=== PATIENT | male | born 1945 | race Caucasian/White ===

== ENCOUNTER 2022-11-20 11:24 | Inpatient (IN) | payer MEDICARE, OTHER ==
[~2022-11-20] VITALS: Ht 190.5 cm; Wt 84.4 kg
[~2022-11-20 11:24] MED LIST: ASCO-352 PO; ASPI-605 PO; BISA10SU12 RC; DOCU100C36 PO; FURO40SO2 PO; METF-440 PO; METO25TA6 PO; MULT1TAB11 PO; NA P133E RC; PANT40TA49 PO; POTA20TA74 PO; POTA8TAB3 PO; SIMV-49 PO; SPIR50TA PO
--- NOTE | 2022-11-20 11:30 | NUR ---
CLAUDIA NESS FROM SNF C/O VOMITING X3 DAYS, HAVING POOR APPETITE, AND REFUSING MEDS, HERE FOR PSYCH EVALUATION. PLACED IN BED, AWAKE ALERT RESPONDING TO VERBAL STIMULI- COOPERATIVE.
[2022-11-20] MEDS ORDERED: ONDANSETRON HCL/PF 4 MG/2 ML VIAL IVP ONE (12:00)
[2022-11-20] MEDS ORDERED: IV NS 0.9% 1,000 ML BAG IV ONE (12:00)
[2022-11-20] MEDS ORDERED: FAMOTIDINE/PF INJ 20 MG/2 ML VIAL IV ONE ×2 (12:00→12:22)
--- NOTE | 2022-11-20 12:00 | NUR ---
LAW REPORTER AT BEDSIDE
[2022-11-20 12:15] LABS: BASOPHILS # (AUTO) 0.1 K/uL (0.0-0.2); BASOPHILS % (AUTO) 0.4 % (0.0-2.0); EOSINOPHILS % (AUTO) 1.5 % (0.0-6.0); HEMATOCRIT 42 % (39-51); HEMOGLOBIN 14.1 g/dL (13.5-17.5); LYMPHOCYTES # (AUTO) 2.8 K/uL (0.8-4.8); LYMPHOCYTES % (AUTO) 24.1 % (20.0-44.0); MEAN CORPUSCULAR HGB CONC 33 g/dl (31.0-36.0); MEAN CORPUSCULAR VOLUME 90 fL (80-96); MONOCYTES # (AUTO) 0.9 K/uL (0.1-1.30); MONOCYTES % (AUTO) 7.6 % (2.0-12.0); NEUTROPHILS # (AUTO) 7.8 K/uL (1.8-8.9); NEUTROPHILS % (AUTO) 66.4 % (43.0-81.0); PLATELET COUNT (AUTO) 261 K/uL (150-450); WHITE BLOOD COUNT (AUTO) 11.7 K/uL (4.3-11.0)
[2022-11-20] MEDS ORDERED: ONDANSETRON HCL/PF 4 MG/2 ML VIAL ONE (12:21)
[2022-11-20 12:22] LABS: CALCIUM, SERUM 9.4 mg/dL (8.5-10.1); CARBON DIOXIDE 37 mmol/L (21-32); CHLORIDE 97 mmol/L (98-107); CREATININE 1.3 mg/dL (0.6-1.3); GLUCOSE 114 mg/dL (74-106); POTASSIUM 3.6 mmol/L (3.5-5.1); SODIUM SERUM 136 mmol/L (136-145); UREA NITROGEN, BLOOD 21 mg/dL (7-18)
[2022-11-20 12:29] LABS: ALANINE AMINOTRANSFERASE 127 U/L (12-78); ALBUMIN 2.9 g/dL (3.4-5.0); ALKALINE PHOSPHATASE 118 U/L (46-116); ASPARTATE AMINOTRANSFERASE 52 U/L (15-37); BILIRUBIN,DIRECT 0.1 mg/dL (0.0-0.2); BILIRUBIN,TOTAL 0.5 mg/dL (0.2-1.0); LIPASE 87 U/L (73-393)
[2022-11-20] MEDS ORDERED: TRAZ-182 PO (12:44)
[2022-11-20] MEDS ORDERED: SENN-261 PO (12:44)
[2022-11-20] MEDS ORDERED: ACET-868 PO (12:44)
[2022-11-20] MEDS ORDERED: ATOR10TA PO (12:44)
[2022-11-20] MEDS ORDERED: ALPR0.5T8 PO (12:44)
[2022-11-20] MEDS ORDERED: POTA40LI17 PO (12:44)
[2022-11-20] MEDS ORDERED: MAGN400O6 PO (12:44)
[2022-11-20] MEDS ORDERED: ARIP20TA20 PO (12:44)
[2022-11-20] MEDS ORDERED: BISA10SU11 RC (12:44)
[2022-11-20] MEDS ORDERED: FURO20TA4 PO (12:44)
--- NOTE | 2022-11-20 13:15 | NUR ---
PATIENT ON HOLD 5150 FORMS FILLED AND SIGNED BY MANOLO SELBY
--- NOTE | 2022-11-20 14:22 | NUR ---
bed assigned= 213-B
[2022-11-20] MEDS ORDERED: ACETAMINOPHEN 325 MG TABLET PO PRN ×2 (14:30→15:00)
[2022-11-20] MEDS ORDERED: NA PHOS,M-B/NA PHOS,DI-BA 1 EA ENEMA RC PRN (14:30)
[2022-11-20] MEDS ORDERED: BISACODYL SUPP (10 MG) 10 MG/SUPP.RECT SUPP.RECT RC PRN (14:30)
[2022-11-20] MEDS ORDERED: LORAZEPAM 0.5 MG TABLET PO PRN (15:00)
[2022-11-20] MEDS ORDERED: MAG HYDROX/AL HYDROX/SIMETH 30 ML UDC PO PRN (15:00)
[2022-11-20] MEDS ORDERED: ZOLPIDEM TARTRATE 5 MG TABLET PO PRN (15:00)
[2022-11-20] MEDS ORDERED: MAGNESIUM HYDROXIDE 30 ML UDC PO PRN (15:00)
--- NOTE | 2022-11-20 15:32 | NUR ---
REPORT GIVEN TO BÁRBARA RN ROOM 213-B FOR DICK
--- NOTE | 2022-11-20 16:07 | NUR ---
RECEIVED PT FROM ER, SAFE TRANSFER, SKIN ASSESSMENT PERFORMED SKIN IS INTACT NO BED SORES NO OPEN WOUNDS, ABRASION NOTED ON RIGHT EYEBROW AREA OF FACE A BO AND A SCAB, BI-LATERAL ARMS HAVE DISCOLORATION FROM IV SITES AND OTHER NOTED, BUTTOCKS AND SIVAKUMAR AREA CLEAN CLEAR, HEIGHT IS 6'3" WEIGHT IS 186 LBS, VS = B/P 120/69, TEMP 98.7, RR 18, PULSE 68, OXYGEN 95%, PT MADE COMFORTABLE AND ORIENTED TO STAFF , ROOM , AND EDUCATED TO ASK FOR HELP IF NEEDING TO USE BATH ROOM OR NEEDS ANY OTHER HELP. EXPRESSED UNDERSTANDING AND IS GOING TO REST AND NAP FOR RIGHT NOW
[2022-11-20] MEDS: METFORMIN 500 MG TABLET PO SCH (16:25)
--- NOTE | 2022-11-20 16:27 | NUR ---
RN-CO: DR MAX GAVE ADMITTING ORDERS AND DR HOFFMANN RECONCILED HOME MEDICATIONS, NOTED AND CARRIED OUT.
[2022-11-20 20:00] VITALS: BP 98/53
[2022-11-20] MEDS: ATORVASTATIN 10 MG TABLET PO SCH (21:32)
[2022-11-20] MEDS: DOCUSATE SODIUM 100 MG CAPSULE PO SCH (21:32)
[2022-11-20] MEDS: SENNOSIDES 8.6 MG TABLET PO SCH (21:32)
[2022-11-21 07:25] LABS: ALBUMIN 2.4 g/dL (3.4-5.0); BILIRUBIN,TOTAL 0.5 mg/dL (0.2-1.0); CALCIUM, SERUM 9.2 mg/dL (8.5-10.1); CREATININE 1.1 mg/dL (0.6-1.3); POTASSIUM 3.7 mmol/L (3.5-5.1); TOTAL PROTEIN, SERUM 5.9 g/dL (6.4-8.2)
[2022-11-21 08:00] VITALS: BP 119/60
[2022-11-21] MEDS: PANTOPRAZOLE 40 MG TABLET.DR PO SCH (08:26)
[2022-11-21] MEDS: METFORMIN 500 MG TABLET PO SCH ×2 (08:26→17:16)
[2022-11-21] MEDS ORDERED: FUROSEMIDE 20 MG TABLET PO SCH (09:00)
[2022-11-21] MEDS ORDERED: SPIRONOLACTONE 25 MG TABLET PO SCH (09:00)
--- NOTE | 2022-11-21 09:16 | NUR ---
WAYNE Clinical Note: Pt placed on a 5150 hold for GD. Pt was aggressive at his facility. Patient will return back to [facility] located at [address] [place] [address]; ([phone]). WAYNE spoke with Екатерина from admissions who stated that pt is welcomed back.
--- NOTE | 2022-11-21 09:16 | NUR ---
Treatment Plan: Pt refused to sign treatment plan and was very confused.
--- NOTE | 2022-11-21 09:16 | NUR ---
WAYNE Initial Discharge Note: Patient will return back to [facility] located at [address] [place] [address]; ([phone]). WAYNE spoke with Екатерина from admissions who stated that pt is welcomed back. WAYNE will work with the MD and pt to help coordinate appropriate discharge.
[2022-11-21 16:00] VITALS: BP 121/65
[2022-11-21] MEDS: OLANZAPINE ZYDIS 5 MG TAB.RAPDIS PO SCH (17:16)
[2022-11-21 20:00] VITALS: BP 117/63
[2022-11-21 20:46] VITALS: BP 117/63
[2022-11-21] MEDS: DIVALPROEX SODIUM 250 MG TABLET.DR PO SCH (21:05)
[2022-11-21] MEDS: ATORVASTATIN 10 MG TABLET PO SCH (21:05)
[2022-11-21] MEDS: SENNOSIDES 8.6 MG TABLET PO SCH (21:05)
[2022-11-21] MEDS: DOCUSATE SODIUM 100 MG CAPSULE PO SCH (21:12)
[2022-11-21] MEDS: TRAZODONE 50 MG TABLET PO SCH (21:12)
--- NOTE | 2022-11-21 22:06 | NUR ---
FOLLOWED PATIENT'S DIET FROM THE FACILITY.
--- NOTE | 2022-11-22 01:51 | NUR ---
GOT AN ORDER FROM MD TO USE STRAIGHT CATH TO OBTAIN URINE SAMPLE SINCE PATIENT IS INCONTINENT AND USING A DIAPER.
[2022-11-22 06:32] LABS: BASOPHILS % (AUTO) 0.4 % (0.0-2.0); EOSINOPHILS % (AUTO) 3.5 % (0.0-6.0); HEMATOCRIT 38 % (39-51); HEMOGLOBIN 12.5 g/dL (13.5-17.5); LYMPHOCYTES # (AUTO) 3.4 K/uL (0.8-4.8); LYMPHOCYTES % (AUTO) 29.2 % (20.0-44.0); MEAN CORPUSCULAR HGB CONC 33 g/dl (31.0-36.0); MEAN CORPUSCULAR VOLUME 91 fL (80-96); MONOCYTES # (AUTO) 0.8 K/uL (0.1-1.30); NEUTROPHILS % (AUTO) 59.9 % (43.0-81.0); PLATELET COUNT (AUTO) 232 K/uL (150-450); RED BLOOD CELL COUNT(AUTO) 4.18 MIL/uL (4.5-6.0); WHITE BLOOD COUNT (AUTO) 11.7 K/uL (4.3-11.0)
--- NOTE | 2022-11-22 06:44 | NUR ---
PATIENT RESTING IN BED. A/O X1. UNKEMPT, DISHEVELED, CONFUSED, SUSPICIOUS, GUARDED, LABILE AND EASILY AGITATED. NO SOB OR NOTED. NO C/O PAIN. NO SI/HI AT THIS TIME. ON BED REST, NEEDS MAXIMUM ASSISTANCE WITH ADLS. FOR PT EVALUATION. BILATERAL FOREARMS SKIN DISCOLORATION, RIGHT ARM SKIN TEAR, LEFT KNEE AND FOREHEAD (RIGHT) SCAB SAFETY PRECAUTIONS IN PLACE. WILL ENDORSE TO NEXT SHIFT FOR CONTINUITY OF CARE.
[2022-11-22 06:48] LABS: BILIRUBIN,URINE NEGATIVE (NEGATIVE); COLOR,URINE DARK YELLOW (YELLOW); LEUKOCYTE ESTERASE ,URINE TRACE (NEGATIVE); NITRITE, URINE NEGATIVE (NEGATIVE); PH,URINE 6.5 (5.0-8.0); PROTEIN,URINE 1+ mg/dl (NEGATIVE); UGLUCOSE NEGATIVE (NEGATIVE)
[2022-11-22 06:58] LABS: CALCIUM, SERUM 9.4 mg/dL (8.5-10.1); CARBON DIOXIDE 30 mmol/L (21-32); CHLORIDE 102 mmol/L (98-107); GLUCOSE 121 mg/dL (74-106); MAGNESIUM 1.8 mg/dL (1.8-2.4); PHOSPHORUS 2.5 mg/dL (2.5-4.9); POTASSIUM 3.5 mmol/L (3.5-5.1); SODIUM SERUM 140 mmol/L (136-145); UREA NITROGEN, BLOOD 21 mg/dL (7-18)
[2022-11-22 07:04] LABS: BACTERIA,URINE Few /HPF (None Seen); RBC,URINE 0-2 /HPF (0-2); SQUAMOUS EPITHELIAL CELL,UR Few /HPF (None Seen)
[2022-11-22 08:00] VITALS: BP 129/74
[2022-11-22] MEDS: PANTOPRAZOLE 40 MG TABLET.DR PO SCH (08:30)
[2022-11-22] MEDS: DIVALPROEX SODIUM 250 MG TABLET.DR PO SCH ×2 (09:00→21:52)
[2022-11-22] MEDS: OLANZAPINE ZYDIS 5 MG TAB.RAPDIS PO SCH ×2 (09:00→17:20)
[2022-11-22] MEDS: METFORMIN 500 MG TABLET PO SCH ×2 (09:00→17:20)
[2022-11-22] MEDS: CEPHALEXIN MONOHYDRATE 250 MG CAPSULE PO SCH ×3 (12:37→23:09)
[2022-11-22 16:00] VITALS: BP 127/70
[2022-11-22 20:00] VITALS: BP 126/68
[2022-11-22] MEDS: DOCUSATE SODIUM 100 MG CAPSULE PO SCH (21:52)
[2022-11-22] MEDS: SENNOSIDES 8.6 MG TABLET PO SCH (21:53)
[2022-11-22] MEDS: ATORVASTATIN 10 MG TABLET PO SCH (21:54)
[2022-11-22] MEDS: TRAZODONE 50 MG TABLET PO SCH (21:54)
--- NOTE | 2022-11-23 03:44 | NUR ---
Alert,verbal and confused incontinent care done kept clean. ABT in progress no adverse reaction. Temp 98.4.
[2022-11-23] MEDS: CEPHALEXIN MONOHYDRATE 250 MG CAPSULE PO SCH ×4 (05:40→23:52)
[2022-11-23 06:22] LABS: BASOPHILS % (AUTO) 0.2 % (0.0-2.0); EOSINOPHILS % (AUTO) 6.2 % (0.0-6.0); HEMATOCRIT 38 % (39-51); HEMOGLOBIN 12.6 g/dL (13.5-17.5); LYMPHOCYTES # (AUTO) 2.7 K/uL (0.8-4.8); LYMPHOCYTES % (AUTO) 30.3 % (20.0-44.0); MEAN CORPUSCULAR HGB CONC 33 g/dl (31.0-36.0); MEAN CORPUSCULAR VOLUME 91 fL (80-96); MONOCYTES # (AUTO) 0.5 K/uL (0.1-1.30); MONOCYTES % (AUTO) 6.1 % (2.0-12.0); NEUTROPHILS # (AUTO) 5.1 K/uL (1.8-8.9); NEUTROPHILS % (AUTO) 57.2 % (43.0-81.0); PLATELET COUNT (AUTO) 217 K/uL (150-450); RED BLOOD CELL COUNT(AUTO) 4.17 MIL/uL (4.5-6.0)
[2022-11-23 06:38] LABS: CALCIUM, SERUM 9.4 mg/dL (8.5-10.1); CARBON DIOXIDE 31 mmol/L (21-32); CHLORIDE 102 mmol/L (98-107); CREATININE 0.9 mg/dL (0.6-1.3); GLUCOSE 101 mg/dL (74-106); MAGNESIUM 1.7 mg/dL (1.8-2.4); PHOSPHORUS 3.2 mg/dL (2.5-4.9); POTASSIUM 3.5 mmol/L (3.5-5.1); SODIUM SERUM 139 mmol/L (136-145); UREA NITROGEN, BLOOD 20 mg/dL (7-18)
[2022-11-23] MEDS ORDERED: MAGNESIUM OXIDE 400 MG TABLET PO ONE ×2 (07:30→11:00)
--- NOTE | 2022-11-23 07:40 | NUR ---
WOUND CARE CONSULT: PT REFUSED SKIN ASSESSMENT. SKIN DISCOLORATION TO ARMS NOTED TO ADMISSION PHOTO. WILL SEE PRN.
[2022-11-23 08:00] VITALS: BP 127/71
[2022-11-23] MEDS: DIVALPROEX SODIUM 250 MG TABLET.DR PO SCH ×2 (08:46→21:43)
[2022-11-23] MEDS: OLANZAPINE ZYDIS 5 MG TAB.RAPDIS PO SCH ×2 (08:46→17:53)
[2022-11-23] MEDS: PANTOPRAZOLE 40 MG TABLET.DR PO SCH (08:46)
[2022-11-23] MEDS: METFORMIN 500 MG TABLET PO SCH ×2 (08:46→17:53)
[2022-11-23 16:00] VITALS: BP 120/66
[2022-11-23 20:00] VITALS: BP 135/76
--- NOTE | 2022-11-23 20:16 | NUR ---
GPS RN OPENING NOTES RECEIVED PATIENT IN BED, ON SUPINE POSITION. NO S/S OF PAIN OR ANY DISTRESS AT THIS TIME. ON ROOM AIR BREATHING EVENLY AND UNLABORED. NO S/S OF SOB OR DISTRESS AT THIS TIME. A/O X 2 NOTED PATIENT TO BE CONFUSED, AGITATED BUT ABLE TO FOLLOW COMMANDS. TRYING TO GET OUT OF BED. NOTED PATIENT TALKING TO SELF MOST OF THE TIME. NOTED BILATERAL ARM WITH DRESSING CLEAN AND DRY. KEPT BED ON LOWER LOCKED POSITION, KEPT SIDE RAILS UP ALL THE TIME. KEPT CALL LIGHT WITHIN AT REACH. WILL CONTINUE TO MONITOR EVERY 15 MONS FOR BEHAVIORAL CHANGES.
[2022-11-23] MEDS: DOCUSATE SODIUM 100 MG CAPSULE PO SCH (21:43)
[2022-11-23] MEDS: TRAZODONE 50 MG TABLET PO SCH (21:43)
[2022-11-23] MEDS: ATORVASTATIN 10 MG TABLET PO SCH (21:43)
[2022-11-23] MEDS: SENNOSIDES 8.6 MG TABLET PO SCH (21:43)
[2022-11-24] MEDS: CEPHALEXIN MONOHYDRATE 250 MG CAPSULE PO SCH ×3 (05:42→17:05)
[2022-11-24 08:00] VITALS: BP 118/57
[2022-11-24] MEDS: DIVALPROEX SODIUM 250 MG TABLET.DR PO SCH ×3 (08:19→22:07)
[2022-11-24] MEDS: OLANZAPINE ZYDIS 5 MG TAB.RAPDIS PO SCH ×2 (08:19→17:05)
[2022-11-24] MEDS: METFORMIN 500 MG TABLET PO SCH ×2 (08:19→17:04)
[2022-11-24] MEDS: PANTOPRAZOLE 40 MG TABLET.DR PO SCH (08:19)
[2022-11-24 16:00] VITALS: BP 109/60
--- NOTE | 2022-11-24 19:00 | NUR ---
GPS RN OPENING NOTE RECEIVED PATIENT ASLEEP AND IN THE BED. PT IS A/OX1, ABLE TO WALK W/ A WALKER. PATIENT IS SHOWING NO S/S OF DISTRESS AT THIS TIME. PT HAS NO S/S OR COMPLAINTS OF PAIN @ THIS TIME. PT IS IN RA TOLERATING WELL, BREATHING EVEN AND UNLABORED @ THIS TIME. PATIENT HAS NO NEED @ THIS TIME. PATIENT BED SIDE RAILS UP X 2 FOR SAFETY. BED LOCKED AND LOW. WILL CONTINUE TO MONITOR Q15 WITH THE HELP OF STAFF TO MAINTAIN SAFETY.
[2022-11-24 20:00] VITALS: BP 116/65
[2022-11-24] MEDS: SENNOSIDES 8.6 MG TABLET PO SCH ×2 (21:36→22:00)
[2022-11-24] MEDS: DOCUSATE SODIUM 100 MG CAPSULE PO SCH ×2 (21:36→22:00)
[2022-11-24] MEDS: ATORVASTATIN 10 MG TABLET PO SCH ×2 (21:36→22:00)
[2022-11-24] MEDS: TRAZODONE 50 MG TABLET PO SCH ×2 (21:36→22:00)
--- NOTE | 2022-11-24 22:11 | NUR ---
PM MEDS HELD. PT REFUSED MEDICATION. CHARGE NURSE INFORMED AND AWARE. MEDICATION RETURNED TO [facility].
--- NOTE | 2022-11-25 00:03 | NUR ---
HELD ARLETH D/T PT REFUSED. CHARGE NURSE AWARE AND INFORMED.
[2022-11-25] MEDS: CEPHALEXIN MONOHYDRATE 250 MG CAPSULE PO SCH ×5 (06:00→23:51)
--- NOTE | 2022-11-25 06:17 | NUR ---
HELD KEPLEX D/T PT REFUSED. PT IS VOMITING. CHARGE NURSE AWARE AND INFORMED.
[2022-11-25 08:00] VITALS: BP 136/63
[2022-11-25] MEDS: METFORMIN 500 MG TABLET PO SCH ×2 (08:10→16:20)
[2022-11-25] MEDS: PANTOPRAZOLE 40 MG TABLET.DR PO SCH (08:11)
[2022-11-25] MEDS: OLANZAPINE ZYDIS 5 MG TAB.RAPDIS PO SCH ×2 (08:11→16:21)
[2022-11-25] MEDS ORDERED: hydrOXYzine PAMOATE 25 MG CAPSULE PO PRN (12:00)
[2022-11-25 16:00] VITALS: BP 116/61
[2022-11-25 20:20] VITALS: BP 98/62
[2022-11-25 21:00] VITALS: BP 106/67
[2022-11-25] MEDS: SENNOSIDES 8.6 MG TABLET PO SCH (21:50)
[2022-11-25] MEDS: DOCUSATE SODIUM 100 MG CAPSULE PO SCH (21:50)
[2022-11-25] MEDS: ATORVASTATIN 10 MG TABLET PO SCH (21:51)
[2022-11-25] MEDS: DIVALPROEX SODIUM 250 MG TABLET.DR PO SCH (21:51)
[2022-11-25] MEDS: TRAZODONE 50 MG TABLET PO SCH (21:51)
--- NOTE | 2022-11-25 22:02 | NUR ---
RN NOTE: RONNELL DIAMOND NOTIFIED THAT PATIENT O2 SATURATION LEVEL IS LOW 90-91% ON ROOM AIR. RONNELL DIAMOND ORDERED ALBUTEROL AND ATROVENT BREATHING TREATMENT Q6HRS ROUTINE, KEEP O2 AT 2LPM UNTIL O2 SAT LEVEL STABLE, CHEST X-RAY IN AM. ALL ORDERS NOTED AND CARRIED OUT.
[2022-11-25] MEDS: ALBUTEROL FS 2.5 MG/3 ML VIAL.NEB NEB SCH (22:58)
[2022-11-25] MEDS: IPRATROPIUM NEB FS 0.5 MG/2.5 ML AMPUL.NEB NEB SCH (22:58)
[2022-11-26] MEDS: IPRATROPIUM NEB FS 0.5 MG/2.5 ML AMPUL.NEB NEB SCH ×4 (01:30→21:13)
[2022-11-26] MEDS: ALBUTEROL FS 2.5 MG/3 ML VIAL.NEB NEB SCH ×4 (01:30→21:13)
[2022-11-26] MEDS: CEPHALEXIN MONOHYDRATE 250 MG CAPSULE PO SCH ×3 (06:10→17:04)
[2022-11-26 08:00] VITALS: BP 108/57
[2022-11-26] MEDS: PANTOPRAZOLE 40 MG TABLET.DR PO SCH (08:09)
[2022-11-26] MEDS: METFORMIN 500 MG TABLET PO SCH ×2 (09:10→17:04)
[2022-11-26] MEDS: OLANZAPINE ZYDIS 5 MG TAB.RAPDIS PO SCH ×2 (09:10→17:04)
[2022-11-26] MEDS: DIVALPROEX SODIUM 250 MG TABLET.DR PO SCH ×2 (09:10→21:36)
--- NOTE | 2022-11-26 12:02 | NUR ---
Court Notification: Pt does not have any supportive contact at this time.
--- NOTE | 2022-11-26 12:03 | NUR ---
Court Hearing: Patient's court hearing for [id number] was today and it was upheld for GD.
[2022-11-26 16:00] VITALS: BP 101/65
--- NOTE | 2022-11-26 19:47 | NUR ---
RN NOTE RELAYED TO HEALTH CARE / MEDICAL JOB TITLES LOBO REGARDING THE CHEST X-RAY RESULT WITH NO NEW ORDERS AT THIS TIME.
[2022-11-26 19:52] VITALS: BP 108/76
[2022-11-26] MEDS: ATORVASTATIN 10 MG TABLET PO SCH (21:28)
[2022-11-26] MEDS: DOCUSATE SODIUM 100 MG CAPSULE PO SCH (21:28)
[2022-11-26] MEDS: SENNOSIDES 8.6 MG TABLET PO SCH (21:28)
[2022-11-26] MEDS: TRAZODONE 50 MG TABLET PO SCH (21:28)
[2022-11-27] MEDS: CEPHALEXIN MONOHYDRATE 250 MG CAPSULE PO SCH ×4 (00:05→17:14)
[2022-11-27] MEDS: ALBUTEROL FS 2.5 MG/3 ML VIAL.NEB NEB SCH ×4 (01:30→19:30)
[2022-11-27] MEDS: IPRATROPIUM NEB FS 0.5 MG/2.5 ML AMPUL.NEB NEB SCH ×4 (01:30→19:30)
[2022-11-27 08:00] VITALS: BP 120/75
[2022-11-27] MEDS: METFORMIN 500 MG TABLET PO SCH ×2 (08:19→16:42)
[2022-11-27] MEDS: OLANZAPINE ZYDIS 5 MG TAB.RAPDIS PO SCH ×2 (08:19→16:42)
[2022-11-27] MEDS: PANTOPRAZOLE 40 MG TABLET.DR PO SCH (08:19)
[2022-11-27] MEDS: DIVALPROEX SODIUM 250 MG TABLET.DR PO SCH ×2 (08:19→21:52)
[2022-11-27 16:00] VITALS: BP 103/65
[2022-11-27] MEDS: GLUCERNA SHAKE 237 ML CAN PO SCH (17:15)
[2022-11-27 20:12] VITALS: BP 116/68
[2022-11-27] MEDS: TRAZODONE 50 MG TABLET PO SCH (21:52)
[2022-11-27] MEDS: SENNOSIDES 8.6 MG TABLET PO SCH (21:52)
[2022-11-27] MEDS: DOCUSATE SODIUM 100 MG CAPSULE PO SCH (21:52)
[2022-11-27] MEDS: ATORVASTATIN 10 MG TABLET PO SCH (22:01)
[2022-11-28] MEDS: CEPHALEXIN MONOHYDRATE 250 MG CAPSULE PO SCH ×5 (00:20→18:23)
--- NOTE | 2022-11-28 00:38 | NUR ---
RN NOTE PT REFUSED TAKING ANTIBIOTIC MEDICATION KEFLEX DUE AT 0000. PT STATED "NO" . EDUCATED PT ABNOUT THE IMPORTANCE OF TAKING ANTIBIOTIC MEDICATIONS FOLLOWING THE SCHEDULE; PT STILL REFUSED.
[2022-11-28] MEDS: ALBUTEROL FS 2.5 MG/3 ML VIAL.NEB NEB SCH ×4 (01:30→20:27)
[2022-11-28] MEDS: IPRATROPIUM NEB FS 0.5 MG/2.5 ML AMPUL.NEB NEB SCH ×4 (01:30→20:27)
[2022-11-28 08:00] VITALS: BP 107/70
[2022-11-28] MEDS: PANTOPRAZOLE 40 MG TABLET.DR PO SCH (08:28)
[2022-11-28] MEDS: DIVALPROEX SODIUM 250 MG TABLET.DR PO SCH ×2 (08:55→21:18)
[2022-11-28] MEDS: METFORMIN 500 MG TABLET PO SCH ×2 (08:55→17:19)
[2022-11-28] MEDS: GLUCERNA SHAKE 237 ML CAN PO SCH ×2 (08:56→17:19)
[2022-11-28] MEDS: OLANZAPINE ZYDIS 5 MG TAB.RAPDIS PO SCH ×2 (09:50→21:20)
[2022-11-28 16:00] VITALS: BP 126/75
[2022-11-28 20:00] VITALS: BP 101/62
[2022-11-28 20:12] VITALS: BP 101/62
--- NOTE | 2022-11-28 20:31 | NUR ---
RN OPENING NOTES: RECEIVED PATIENT AWAKE, ON ADILIA CHAIR, NO COMPLAIN OF PAIN AND DISCOMFORT WAS OBSERVED, ON ROOM AIR SATURATING WELL, PATIENT ON CRUSH MEDICATION AND ROUTINE BREATHING TREATMENT , NO COMBATIVE BEHAVIOR WAS OBSERVED WILL CONTINUE TO MONITOR.
[2022-11-28] MEDS: DOCUSATE SODIUM 100 MG CAPSULE PO SCH (21:18)
[2022-11-28] MEDS: SENNOSIDES 8.6 MG TABLET PO SCH (21:18)
[2022-11-28] MEDS: TRAZODONE 50 MG TABLET PO SCH (21:19)
[2022-11-28] MEDS: ATORVASTATIN 10 MG TABLET PO SCH (21:22)
[2022-11-29] MEDS: CEPHALEXIN MONOHYDRATE 250 MG CAPSULE PO SCH ×3 (00:08→11:27)
[2022-11-29] MEDS: IPRATROPIUM NEB FS 0.5 MG/2.5 ML AMPUL.NEB NEB SCH ×4 (01:42→20:43)
[2022-11-29] MEDS: ALBUTEROL FS 2.5 MG/3 ML VIAL.NEB NEB SCH ×4 (01:42→20:43)
[2022-11-29 08:00] VITALS: BP 103/65
[2022-11-29] MEDS: OLANZAPINE ZYDIS 5 MG TAB.RAPDIS PO SCH ×2 (08:25→21:13)
[2022-11-29] MEDS: DIVALPROEX SODIUM 250 MG TABLET.DR PO SCH ×3 (08:25→16:28)
[2022-11-29] MEDS: GLUCERNA SHAKE 237 ML CAN PO SCH ×2 (08:25→16:28)
[2022-11-29] MEDS: PANTOPRAZOLE 40 MG TABLET.DR PO SCH (08:26)
[2022-11-29] MEDS: METFORMIN 500 MG TABLET PO SCH ×2 (08:26→16:28)
--- NOTE | 2022-11-29 11:54 | NUR ---
Facility Contact: WAYNE spoke with Екатерина/Marisel from admissions ([phone]) and notified of pt's dc day 12/01 and stated pt is welcomed back on that day. WAYNE faxed ([phone]) of pt's progress notes.
[2022-11-29 16:00] VITALS: BP 95/64
--- NOTE | 2022-11-29 18:39 | NUR ---
RN- CLOSING NOTES PATIENT IS RESTING IN BED, BREATHING EVEN AND NON LABORED WITH NO S/S OF DISTRESS. PATIENT IS QUIET, ISOLATIVE, CONFUSED, AND DISORIENTED. OXYGEN SATURATION AT 94% AND 95% THROUGHOUT THE DAY ON ROOM AIR. PATIENT IS MEDICATION COMPLIANT. DENIES SI/HI AT THIS TIME. WILL CONTINUE TO MONITOR Q 15 MINUTES FOR SAFETY AND BEHAVIOR.
[2022-11-29 20:23] VITALS: BP 103/64
[2022-11-29] MEDS: DOCUSATE SODIUM 100 MG CAPSULE PO SCH (21:13)
[2022-11-29] MEDS: ATORVASTATIN 10 MG TABLET PO SCH (21:14)
[2022-11-29] MEDS: SENNOSIDES 8.6 MG TABLET PO SCH (21:14)
[2022-11-29] MEDS: TRAZODONE 50 MG TABLET PO SCH (21:18)
[2022-11-30] MEDS: IPRATROPIUM NEB FS 0.5 MG/2.5 ML AMPUL.NEB NEB SCH ×4 (01:45→20:53)
[2022-11-30] MEDS: ALBUTEROL FS 2.5 MG/3 ML VIAL.NEB NEB SCH ×4 (01:45→20:53)
[2022-11-30] MEDS ORDERED: Z GUARD REMEDY 4 OZ OINT TP PRN (06:00)
[2022-11-30 08:00] VITALS: BP 111/63
--- NOTE | 2022-11-30 08:14 | NUR ---
EARLY DISCHARGE ENTRY 12/01/2022: Patient will return back to [facility] located at [address] [place] [address]; ([phone]). Please arrange transportation at 1PM. SW contacted [facility] and spoke with Екатерина/Marisel cifuentes who stated pt is welcomed back. Pt has no support contact at this time. Pt has no other supportive contact. Pt is alert and oriented x2. Pt denies suicidal or homicidal ideation. Pt denies visual/auditory hallucinations. Patient will follow-up at the facility with Dr. Looney (psychiatrist) [id number] [address]; ([phone]). Patient will follow up with (Psychiatrist) Dr. Salter at [address] [place] [address] ([phone]). Patient presents with euthymic mood and congruent affect.
[2022-11-30] MEDS: DIVALPROEX SODIUM 250 MG TABLET.DR PO SCH ×3 (08:23→16:48)
[2022-11-30] MEDS: OLANZAPINE ZYDIS 5 MG TAB.RAPDIS PO SCH ×2 (08:23→21:48)
[2022-11-30] MEDS: PANTOPRAZOLE 40 MG TABLET.DR PO SCH (08:24)
[2022-11-30] MEDS: GLUCERNA SHAKE 237 ML CAN PO SCH ×2 (08:24→16:48)
[2022-11-30] MEDS: METFORMIN 500 MG TABLET PO SCH ×2 (08:24→16:48)
[2022-11-30] MEDS: Z GUARD REMEDY 4 OZ OINT TP SCH (08:31)
[2022-11-30 16:00] VITALS: BP 100/60
--- NOTE | 2022-11-30 17:46 | NUR ---
NURSE NOTES: PT ANXIOUS AT THIS TIME, HAVING YELLING OUTBURST. VISTARIL PO ADMIN ORDERED. PT STACY WELL. WILL CONT TO MONITOR.
--- NOTE | 2022-11-30 19:58 | NUR ---
HEADMASTER/MISTRESS NOTES: RECEIVED PATIENT RESTING IN BED HOB ELEVATED TO 45 DEGREES FOR ASPIRATION PRECAUTION.BREATHING EVEN AND NON- LABORED,NO S/S OF RESPIRATORY DISTRESS NOTED. PATIENT IS QUIET, ISOLATIVE,CONFUSED, AND DISORIENTED. ON ROOM AIR WITH SPO2 94%-95% .DENIES SI/HI AT HIS TIME.ALL NEEDS ANTICIPATED.WILL CONTINUE TO MONITOR Q15 MINS FOR SAFETY AND BEHAVIOR.
[2022-11-30 20:00] VITALS: BP 115/64
[2022-11-30] MEDS: ATORVASTATIN 10 MG TABLET PO SCH (21:48)
[2022-11-30] MEDS: DOCUSATE SODIUM 100 MG CAPSULE PO SCH (21:48)
[2022-11-30] MEDS: SENNOSIDES 8.6 MG TABLET PO SCH (21:49)
[2022-11-30] MEDS: TRAZODONE 50 MG TABLET PO SCH (21:49)
[2022-12-01] MEDS: ALBUTEROL FS 2.5 MG/3 ML VIAL.NEB NEB SCH ×3 (01:30→13:30)
[2022-12-01] MEDS: IPRATROPIUM NEB FS 0.5 MG/2.5 ML AMPUL.NEB NEB SCH ×3 (01:30→13:30)
[2022-12-01 08:00] VITALS: BP 111/66
[2022-12-01] MEDS: GLUCERNA SHAKE 237 ML CAN PO SCH (08:59)
[2022-12-01] MEDS: Z GUARD REMEDY 4 OZ OINT TP SCH (09:00)
[2022-12-01] MEDS: PANTOPRAZOLE 40 MG TABLET.DR PO SCH (09:02)
[2022-12-01] MEDS: METFORMIN 500 MG TABLET PO SCH (09:02)
[2022-12-01] MEDS: OLANZAPINE ZYDIS 5 MG TAB.RAPDIS PO SCH (09:02)
[2022-12-01] MEDS: DIVALPROEX SODIUM 250 MG TABLET.DR PO SCH ×2 (09:02→12:21)
--- NOTE | 2022-12-01 14:15 | NUR ---
GPS/RN PT D/C TO [facility] VIA AMBULANCE REPORT GIVEN TO ZEE. H/P AND MED LIST FAXED WELL BY REQUEST. NO BELONGINGS, PT REFUSED PICTURES ON D/C. NO SI/HI REPORTED AT THE TIME OF D/C. VSS
== END 2022-12-01 14:15 | DRG 885 ==
LOC: ER 11:24 → GPS 14:34
PROVIDERS: ADMIT Psychiatry & Neurology Psychiatry; ATTEND Nurse Practitioner Acute Care
DX: F25.0 Schizoaffective disorder, bipolar type (principal); I11.0 Hypertensive heart disease with heart failure; G93.41 Metabolic encephalopathy; I50.30 Unspecified diastolic (congestive) heart failure; E44.0 Moderate protein-calorie malnutrition; N39.0 Urinary tract infection, site not specified; K21.9 Gastro-esophageal reflux disease without esophagitis; J44.9 Chronic obstructive pulmonary disease, unspecified; I48.91 Unspecified atrial fibrillation; R91.1 Solitary pulmonary nodule; E86.0 Dehydration; K76.1 Chronic passive congestion of liver; E88.09 Other disorders of plasma-protein metabolism, not elsewhere classified; E83.42 Hypomagnesemia; B96.89 Other specified bacterial agents as the cause of diseases classified elsewhere; K59.09 Other constipation; Z20.822 Contact with and (suspected) exposure to COVID-19; Z87.891 Personal history of nicotine dependence
CPT/HCPCS: 36415; 71045-TC; 71250-TC; 80048-TC; 80053-TC; 80061-TC; 80076-TC; 80164-TC; 81001; 83690-TC; 83735-TC; 84100-TC; 84484-TC; 85025-TC; 87081-TC; 87086-TC; 94799-TC; 97112-TC; 97116-TC; 97530-TC; A4223; C9803; G0480; J2405; J3490; J7030; Q0177